=== PATIENT | male | born 1995 | race Caucasian/White ===

== ENCOUNTER 2017-06-02 00:23 | Inpatient (IN) | payer BC, OTHER ==
[~2017-06-02] VITALS: Ht 182.9 cm; Wt 71.7 kg
[2017-06-02] MEDS ORDERED: ACETAMINOPHEN 325 MG TABLET PO PRN (18:45)
[2017-06-02] MEDS ORDERED: diphenhydrAMINE 50 MG CAPSULE PO PRN (18:45)
[2017-06-02] MEDS ORDERED: ONDANSETRON ODT 4 MG TAB.RAPDIS SL PRN (18:45)
[2017-06-02] MEDS ORDERED: LORAZEPAM 2 MG/1 ML VIAL IM PRN (18:45)
[2017-06-02] MEDS ORDERED: METHOCARBAMOL 750 MG TABLET PO PRN (18:45)
[2017-06-02] MEDS ORDERED: LOPERAMIDE HCL 2 MG CAPSULE PO PRN ×2 (18:45)
[2017-06-02] MEDS ORDERED: MIRALAX 17 GM POWD.PACK PO PRN (18:45)
[2017-06-02] MEDS ORDERED: MAGNESIUM HYDROXIDE 30 ML LIQUID UDC PO PRN (18:45)
[2017-06-02] MEDS ORDERED: ONDANSETRON 4 MG/2 ML VIAL IM PRN (18:45)
[2017-06-02] MEDS ORDERED: BUPRENORPHINE HCL 2 MG TAB.SUBL SL PRN (18:45)
[2017-06-02] MEDS ORDERED: IBUPROFEN 600 MG TABLET PO PRN (18:45)
[2017-06-02] MEDS ORDERED: CLONIDINE HCL 0.1 MG TABLET PO PRN (18:45)
[2017-06-02] MEDS ORDERED: MAG HYDROX/AL HYDROX/SIMETH 30 ML LIQUID UDC PO PRN (18:45)
[2017-06-02] MEDS ORDERED: LORAZEPAM 1 MG TABLET PO PRN ×2 (18:45)
[2017-06-02] MEDS ORDERED: DICYCLOMINE HCL 20 MG TABLET PO PRN (18:45)
[2017-06-02 19:15] VITALS: BP 140/85
--- NOTE | 2017-06-02 19:15 | NUR ---
INTAKE ASSESSMENT NOTE BP: 140/85, HR:96, RR:18, SpO2:97%, T:98.1, Pt denies pain at this time Pt is in stable condition and is able to be admitted on the unit. Unit protocols regarding medications and vital signs every 4 hours were explained. Pt verbalized understanding. Will continue admission upon arrival on the unit.
--- NOTE | 2017-06-02 20:00 | NUR ---
ADMISSION NOTE COWS:7, CIWA:6 Pt arrived ambulatory from [facility] Intake to the third floor accompanied by a RN DERMATOLOGY at 1924. Pt is a 21 year old male admitted on 06/02/17 for Benzodiazepine, Opioid, and Methamphetamine dependency. Pt is full code with NKA. He reports a PMHx of anxiety. He denies any history of seizures or recent falls. He denies having a PCP. He did not bring any home medications but reports taking generic brand of Sudafed for his allergies. He reports this is his first time in detox and his longest sobriety was for 4 months in 2009. He describes his current use as: 1. Xanax 4mg PO daily for 6 months. Last dose was 1 mg PO on 06/01/17 2. Percocet, Lortab, Simla, Roxicodone (9-10 pills) intermittently depending on availability Last dose was 06/01/17. 3. Fentanyl 70 mcg patch intermittently 4. Morphine Sulfate liquid drops. 40 mL intermittently 5. Methamphetamine 1/8th gram (snort) daily for 6 months. Last dose 1/8th gram on 06/01/17 Pt describes his withdrawal symptoms as " body aches, chills, sweats, and anxiety" Upon assessment, pt is alert and oriented x4, anxious, restless and cooperative. Speech is clear and audible. Heart rate is regular. Pt denies chest pain or SOB. PERRLA, breathing is even and unlabored, lung sounds clear. Abdomen is soft and non-distended. Bowel sounds present, last BM 06/02/17. Pt reports that BM is regular. Pt's skin is warm, dry and intact. MD aware of pt's admission. Pt oriented to room and unit. Pt safe with bed locked in lowest position, side rails up x2 and call light within reach. Will monitor.
[2017-06-02] MEDS ORDERED: LORAZEPAM 1 MG TABLET ONE (20:03)
[2017-06-02 20:15] LABS: *AMPHETAMINE, URINE NEGATIVE (NEGATIVE); *BARBITURATE, URINE NEGATIVE (NEGATIVE); *CANNABINOID, URINE POSITIVE (NEGATIVE); *COCCAINE, URINE NEGATIVE (NEGATIVE); *OPIATE, URINE NEGATIVE (NEGATIVE); *PHENCYCLIDINE SCREEN,URINE NEGATIVE (NEGATIVE)
[2017-06-02 20:44] LABS: BASOPHILS # (AUTO) 0.1 K/uL (0.0-8.0); BASOPHILS % (AUTO) 0.5 % (0.0-2.0); EOSINOPHILS # (AUTO) 0.9 K/uL (0.0-0.7); HEMOGLOBIN 13.9 G/DL (14.0-18.0); LYMPHOCYTES # (AUTO) 3.3 K/UL (0.8-4.8); LYMPHOCYTES % (AUTO) 30.8 % (20.5-51.5); MEAN CORPUSCULAR HEMOGLOBIN 31.1 UUG (27.0-31.0); MEAN CORPUSCULAR HGB CONC 33 g/dL (32.0-37.0); MEAN CORPUSCULAR VOLUME 94.3 FL (82.0-92.0); MONOCYTES # (AUTO) 0.6 K/UL (0.1-1.30); MONOCYTES % (AUTO) 5.8 % (0.0-11.0); NEUTROPHILS # (AUTO) 5.8 K/UL (1.8-8.9); NEUTROPHILS % (AUTO) 54.9 % (38.5-71.5); PLATELET COUNT (AUTO) 218 K/UL (150-450); RED BLOOD CELL COUNT(AUTO) 4.45 MIL/UL (4.7-6.1); WHITE BLOOD COUNT (AUTO) 10.7 K/UL (4.0-11.2)
[2017-06-02] MEDS ORDERED: LORAZEPAM 1 MG TABLET PO ONE (21:00)
[2017-06-02 21:03] LABS: ALANINE AMINOTRANSFERASE 23 U/L (16-63); ALKALINE PHOSPHATASE 105 U/L (50-136); ASPARTATE AMINOTRANSFERASE < 5 U/L (15-37); BILIRUBIN,TOTAL 0.2 mg/dL (0.2-1.0); CARBON DIOXIDE 27 mmol/L (21-32); CHLORIDE 107 mmol/L (98-107); CREATININE 0.9 mg/dL (0.6-1.3); GLUCOSE 110 mg/dL (74-106); MAGNESIUM 1.8 mg/dL (1.8-2.4); POTASSIUM 3.3 mmol/L (3.5-5.1); TOTAL PROTEIN, SERUM 6.6 g/dL (6.4-8.2); UREA NITROGEN, BLOOD 11 mg/dL (7-18)
[2017-06-02 21:11] LABS: ETHANOL < 3 MG/DL (0-0)
[2017-06-02] MEDS ORDERED: POTASSIUM CHLORIDE 20 MEQ TAB.PRT.SR PO ONE (21:45)
[2017-06-02] MEDS ORDERED: POTASSIUM CHLORIDE 20 MEQ TAB.PRT.SR ONE (22:05)
[2017-06-02] MEDS ORDERED: NICOTINE POLACRILEX 4 MG GUM-PK OF TEN BC PRN (23:45)
[2017-06-02] MEDS ORDERED: NICOTINE 14 MG/24HR PATCH TD PRN (23:45)
[2017-06-03] VITALS: BP 117/76
--- NOTE | 2017-06-03 | NUR ---
COWS/CIWA DEFERRED Pt lying in bed with eyes closed noted to be asleep. Respirations 16, breathing is even and unlabored. Safety measures in place. Will monitor.
--- NOTE | 2017-06-03 00:19 | NUR ---
POTASSIUM Pt with decreased potassium of 3.3. Administered KDUR 40meQ as ordered.
[2017-06-03 04:00] VITALS: BP 110/70
--- NOTE | 2017-06-03 07:19 | NUR ---
END OF SHIFT Pt is a 21 year old male admitted on 06/02/17 for Benzodiazepine, Opioid, and Methamphetamine dependency. Pt is full code with NKA. He reports a PMHx of anxiety. He denies any history of seizures. He is scheduled to start a 5 day Ativan and 5 day Subutex taper today. He received a one time order of Ativan 2 mg, which was effective as evidenced by decrease in CIWA score from 6 to 4. He slept a total of 9hrs, Intake: 500mL, Void: x2, BM:0, COWS: 7, CIWA:4. Pt remains alert and oriented x4, breathing is even and unlabored. Safety measures in place. Will endorse to oncoming shift.
--- NOTE | 2017-06-03 07:20 | NUR ---
Start of Shift Pt is a 21 y/o male here for polysubstance dependence r/t opiates and Benzo r/t Xanax 4mg daily; 5 day Subutex and a5 day Ativan tapers ordered. Pt is a full code, regular diet, NKA, fall and seizure precautions ordered. PHx: anxiety and allergies. This is the first time doing detox. V/S stable and skin is intact. No new orders endorsed to me. pt is asleep in room Will cont. to monitor the pt. Last COWS 7 CIWA 4.
[2017-06-03 08:00] VITALS: BP 120/76
[2017-06-03] MEDS ORDERED: TUBERCULIN,PURIF.PROT.DERIV. 5 TU/0.1 ML TEST ID ONE (09:00)
[2017-06-03] MEDS: BUPRENORPHINE HCL 2 MG TAB.SUBL SL SCH ×4 (09:30→20:30)
[2017-06-03] MEDS: LORAZEPAM 1 MG TABLET PO SCH ×4 (09:30→20:30)
[2017-06-03] MEDS: GABAPENTIN 300 MG CAPSULE PO SCH ×2 (09:30→20:30)
[2017-06-03 12:00] VITALS: BP 149/91
--- NOTE | 2017-06-03 15:28 | NUR ---
therapist encouraged client to come to group today. Client agreed to attend group.
[2017-06-03 16:00] VITALS: BP 131/78
--- NOTE | 2017-06-03 19:15 | NUR ---
START OF SHIFT Received 21 year old male patient admitted on 06/02/17 for Benzodiazepine, Opioid and Methamphetamine dependency. Pt is full code with NKA. He reports a PMHx of anxiety and seasonal allergies. He started his 5 day Ativan and 5 day Subutex taper today and is tolerating well. He did not receive or request PRN medications. Pt is alert and oriented x4, breathing is even and unlabored. Safety measures in place. Will continue to monitor.
--- NOTE | 2017-06-03 19:33 | NUR ---
End of Shift Report to night nurse: Pt is a 21 y/o male here for polysubstance dependence r/t opiates and Benzo r/t Xanax 4mg daily; 5 day Subutex and a5 day Ativan tapers ordered. Pt is a full code, regular diet, NKA, fall and seizure precautions ordered. PHx: anxiety and allergies. This is the first time doing detox. V/S stable and skin is intact with PPD done on the Left FA. No PRN medications given last night. No new orders or labs during my shift. Last COWS 8 CIWA 6.
[2017-06-03 20:00] VITALS: BP 136/74
[2017-06-04] VITALS: BP 141/90
--- NOTE | 2017-06-04 | NUR ---
COWS/CIWA DEFERRED Pt lying in bed with eyes closed noted to be asleep. Respirations 16, breathing is even and unlabored. Safety measures in place. Will monitor.
[2017-06-04 04:00] VITALS: BP 130/88
--- NOTE | 2017-06-04 04:00 | NUR ---
COWS/CIWA DEFERRED COWS/CIWA deferred d/t pt lying in bed with eyes closed noted to be asleep. Respirations 16, breathing is even and unlabored. Safety measures in place. Will monitor.
--- NOTE | 2017-06-04 07:20 | NUR ---
Start of Shift Pt is a 21 y/o male here for polysubstance dependence r/t opiates and Benzo r/t Xanax 4mg daily; 5 day Subutex and a5 day Ativan tapers ordered. Pt is a full code, regular diet, NKA, fall and seizure precautions ordered. PHx: anxiety and allergies. This is the first time doing detox. V/S stable and skin is intact. No new orders or abnormal labs endorsed to me. Last COWS 5 CIWA 6. Pt is in room asleep. Colby cont. to monitor the pt.
--- NOTE | 2017-06-04 07:23 | NUR ---
END OF SHIFT Pt is a 21 year old male patient admitted on 06/02/17 for Benzodiazepine, Opioid and Methamphetamine dependency. Pt is full code with NKA. He reports a PMHx of anxiety and seasonal allergies. He continues on a 5 day Ativan and 5 day Subutex taper, currently on day 2/5 and is tolerating well. He did not receive or request PRN medications. He slept a total of 9hrs, Intake: 1150mL, Void: x2, BM:0, COWS:5, CIWA:6. Pt remains alert and oriented x4, breathing is even and unlabored. Safety measures in place. Endorsed to oncoming shift.
[2017-06-04 08:00] VITALS: BP 142/96
[2017-06-04] MEDS: GABAPENTIN 300 MG CAPSULE PO SCH (09:00)
[2017-06-04] MEDS: BUPRENORPHINE HCL 2 MG TAB.SUBL SL SCH ×3 (09:01→21:35)
[2017-06-04] MEDS: LORAZEPAM 1 MG TABLET PO SCH ×3 (09:01→21:34)
[2017-06-04 11:07] LABS: HEPATITIS B SURFACE AG Negative (Negative)
[2017-06-04 12:00] VITALS: BP 150/94
[2017-06-04] MEDS ORDERED: KETOROLAC TROMETHAMINE 30 MG INJ IM PRN (12:15)
--- NOTE | 2017-06-04 14:29 | NUR ---
Prompted client to attend group.
[2017-06-04 16:00] VITALS: BP 133/97
[2017-06-04] MEDS: BACLOFEN 10 MG TABLET PO SCH ×2 (17:15→21:34)
[2017-06-04] MEDS: DICYCLOMINE HCL 20 MG TABLET PO SCH ×2 (17:18→21:34)
--- NOTE | 2017-06-04 19:24 | NUR ---
End of Shift Report to night nurse: Pt is a 21 y/o male here for polysubstance dependence r/t opiates and Benzo r/t Xanax 4mg daily and Methamphetamine; 5 day Subutex and a5 day Ativan tapers ordered. Pt is a full code, regular diet, NKA, fall and seizure precautions ordered. HHx: anxiety and allergies. This is the first time doing detox. V/S stable and skin is intact. No PRN medications given during my shift. New orders for Bentyl, and baclofen ordered during my shift. Endorsed to the night nurse to monitor the pt's anxiety and BP and to offer him Clonidine since he needs encouragement to take it PRN. Last COWS 7 CIWA 5.
--- NOTE | 2017-06-04 19:30 | NUR ---
Start of Shift Note Received a 21 y/o male admitted 06/02/2017 for polysubstance dependence r/t opiates and Benzo. Px is on 5 day Subutex and 5 day Ativan tapers ordered. Px is on full code, regular diet, NKA, fall and seizure precautions ordered. PHx: anxiety and allergies. During the rounds, COWS 7, CIWA 6. Respirations are even and unlabored. Pupils are pinned. Tremors are observed. Anxiety is on the mild to moderate side. No complaints as of the moment. Side rails up, call lights on. We'll continue to monitor.
[2017-06-04 20:00] VITALS: BP 149/109
[2017-06-04] MEDS: CLONIDINE HCL 0.1 MG TABLET PO SCH (21:34)
[2017-06-05] VITALS: BP 128/83
--- NOTE | 2017-06-05 00:11 | NUR ---
PRN Toradol inj Px complained of left leg pain 03/29. Toradol inj 30 mg given IM on left deltoids as PRN med. We'll continue to monitor.
[2017-06-05 04:00] VITALS: BP 109/61
--- NOTE | 2017-06-05 04:00 | NUR ---
COWS and CIWA deferred COWS and CIWA deferred due to the px is sleeping, to be assess if the px is awake per doctor's order. We'll continue to monitor.
--- NOTE | 2017-06-05 07:25 | NUR ---
End of Shift Note 21 y/o male admitted 06/02/2017 for opiates and Benzos dependence. Px is on 5 day Subutex and 5 day Ativan taper. Px is on full code, regular diet, NKA, fall and seizure precautions ordered. PHx: anxiety and allergies. During the shift, Px complained of left leg pain 03/29 around 0000,COWS 7, CIWA 7, Toradol inj 30 mg given IM on left deltoids as PRN med. Oral intake of 1,800 ml, voided 3x, BM x1. Slept for 6 hrs. Respirations are even and unlabored. Side rails up x2, call lights within reach. Bed on lowest position. We'll continue to monitor.
--- NOTE | 2017-06-05 07:47 | NUR ---
Start of shift note; Received report from night nurse. Patient is a 21 year old male admitted on 06/02/17 for Benzodiazepine/Opiate dependence. Patient was placed on a 5 day Ativan and 5 day Subutex taper, no adverse reactions noted. Patient reported history of anxiety. Patient's last COWS is 7 and last CIWA is 7 at 2400. Patient slept for 6 hours. Patient is on fall and seizure precautions. Bed in lowest position, call light within reach. Will continue to monitor patient.
[2017-06-05 08:00] VITALS: BP 112/64
[2017-06-05] MEDS ORDERED: LORAZEPAM 1 MG TABLET PO SCH ×3 (09:00→21:00)
[2017-06-05] MEDS: CLONIDINE HCL 0.1 MG TABLET PO SCH ×3 (09:00→21:30)
[2017-06-05] MEDS ORDERED: BUPRENORPHINE HCL 2 MG TAB.SUBL SL SCH (09:00)
[2017-06-05] MEDS: DICYCLOMINE HCL 20 MG TABLET PO SCH ×3 (09:00→21:31)
[2017-06-05] MEDS: LORAZEPAM 1 MG TABLET PO SCH ×2 (09:00→12:37)
[2017-06-05] MEDS: BACLOFEN 10 MG TABLET PO SCH (09:00)
--- NOTE | 2017-06-05 09:20 | NUR ---
Nurse note; Patient is AOX4. Morning medications given. Patient attempted to separate Ativan pill and tried to hide it under the sheets. Confronted patient and educated patient regarding the unit protocols and policies. Patient became very defensive about the situation. Witnessed patient take medication. Inspected patient's hand and mouth thoroughly. Medications were taken properly. Will closely monitor patient. Charge nurse was notified. Will notify MD during MD rounds.
--- NOTE | 2017-06-05 10:16 | NUR ---
MD communication; MD on unit. MD was notified of patient's attempt to hide medication. Will closely monitor patient.
[2017-06-05 12:00] VITALS: BP 119/68
[2017-06-05] MEDS: BUPRENORPHINE HCL 2 MG TAB.SUBL SL SCH ×2 (14:46→21:31)
[2017-06-05] MEDS: BACLOFEN 20 MG TABLET PO SCH ×2 (14:46→21:31)
[2017-06-05 16:00] VITALS: BP 96/65
--- NOTE | 2017-06-05 18:08 | NUR ---
End of shift note; Patient is AOX4. Patient is a 21 year old male admitted on 06/02/17 for Benzodiazepine/Opiate dependence. Patient was placed on a 5 day Ativan and 5 day Subutex taper, no adverse reactions noted. Patient reported history of anxiety. Patient's last COWS is 4 and last CIWA is 4 at 1600. Monitored patient closely throughout the shift. Patient was educated regarding unit policies, patient verbalized understanding. Patient is on fall and seizure precautions. Bed in lowest position, call light within reach. Met all needs.
[2017-06-05 20:00] VITALS: BP 107/60
--- NOTE | 2017-06-05 20:00 | NUR ---
Start of Shift Note Received a 21 y/o male admitted 06/02/2017 for polysubstance dependence r/t opiates and Benzo. Px is on 5 day Subutex and 5 day Ativan tapers ordered. Px is on full code, regular diet, NKA, fall and seizure precautions ordered. PHx: anxiety and allergies. During the rounds, Reports increased anxiety and generalized body aches 5/10. Respirations are even and unlabored. Pupils are pinned. Tremors are observed. Side rails up, call lights on. We'll continue to monitor.
[2017-06-06] VITALS: BP 126/83
[2017-06-06 04:00] VITALS: BP 116/81
--- NOTE | 2017-06-06 07:17 | NUR ---
End of Shift Note 21 y/o male admitted 06/02/2017 for polysubstance dependence r/t opiates and Benzo. Px is on 5 day Subutex and 5 day Ativan taper. Full code, regular diet, NKA. Fall and seizure precautions. During the rounds, No complaints as of the moment. Respirations are even and unlabored. Pupils are pinned. Tremors are observed. Anxiety is on the mild to moderate side. Around 0100, px requested for Ativan to make him sleep, Benadryl 50 mg/tab offered but refused. Oral intake of 1,500 ml, voided x5, BM x1. Slept for 3 hrs. Last COWS 4, CIWA 5. Side rails up, call lights on, bed locked in low position. We'll continue to monitor.
[2017-06-06 08:00] VITALS: BP 113/63
--- NOTE | 2017-06-06 08:10 | NUR ---
START OF SHIFT: RECEIVED PT A/O X 4. HE PRESENTS FIDGETY WITH ANXIOUS MOOD. HE STATES HE DID NOT SLEEP WELL. HE REPORTS RESTLESSNESS,ANXIETY,SWEATS,CHILLS AND BODY ACHES. ATIVAN/SUBUTEX TAPER IN PROGRESS.STRICT MOUTH CHECKS DONE.CIWA 5 COWS 6. ENCOURAGED INCREASED FLUIDS TO ASSIST IN FACILITATING DETOX PROCESS. ENCOURAGED GROUP ATTENDANCE TO IMPROVE COPING SKILLS AND PREVENT RELAPSE. WILL CONTINUE TO MONITOR AND OFFER SAFE AND SUPPORTIVE ENVIRONMENT.
[2017-06-06] MEDS: CLONIDINE HCL 0.1 MG TABLET PO SCH ×2 (08:41→15:41)
[2017-06-06] MEDS: BACLOFEN 20 MG TABLET PO SCH ×3 (08:41→20:06)
[2017-06-06] MEDS: DICYCLOMINE HCL 20 MG TABLET PO SCH ×3 (08:41→20:05)
[2017-06-06] MEDS: LORAZEPAM 1 MG TABLET PO SCH ×3 (08:41→20:05)
[2017-06-06] MEDS: BUPRENORPHINE HCL 2 MG TAB.SUBL SL SCH ×3 (08:42→20:06)
[2017-06-06] MEDS ORDERED: LORAZEPAM 1 MG TABLET PO SCH (09:00)
--- NOTE | 2017-06-06 10:00 | NUR ---
Activity Group Note: Attempt made for group participation. Client refused. Will attempt when time permits.
[2017-06-06 12:00] VITALS: BP 128/80
--- NOTE | 2017-06-06 13:45 | NUR ---
Activity Group Note: Attempt made for group participation. Client refused. Will attempt again when time permits.
[2017-06-06] MEDS ORDERED: LORAZEPAM 1 MG TABLET PO ONE (15:00)
[2017-06-06 16:00] VITALS: BP 118/73
--- NOTE | 2017-06-06 19:00 | NUR ---
Start of Shift Patient Received. Patient is in his room, awake, alert and verbally responsive. Breathing even and non labored. Patient is a 21 year old male admitted on 06/04/17 for Opiate Dependence under the care of Dr. Mendez. Patient is continuing on a 5 day Subutex taper. Patient verbalizes no known allergies, wishes to be full code, following a regular diet, placed on fall precautions. Skin noted with multiple scabs throughout his body due to his substance use. Patient denies past medical hisotry. Per endorsement, patient continues on Doxycycline for Multiple scattered open wounds. No PRN medications administered. Last noted COWS 6. All needs attended to promptly. Will continue plan of care as ordered. Addendum: 06/06/17 at 2206 by VISHAL MENESES LVN ENTERED IN ERROR: WRONG PATIENT
--- NOTE | 2017-06-06 19:10 | NUR ---
Start of Shift Patient Received. Patient is in his room, awake, alert and verbally responsive. Patient is a 21 year old male admitted on 06/02/17 for Opioid and Benzo Dependence under the care of Dr. Mendez . Patient continues on a 5 day Ativan and 5 day Subutex taper. Patient verbalizes no known allergies, wishes to be full code, following a regular diet, placed on fall and seizure precautions. Skin noted intact. Past medical history of Anxiety. Per endorsement, Patient continues on Room Restriction for increased behavior episodes. Last noted CIWA 5 and COWS7. No PRN Medications administered. All needs attended to promptly. Will continue plan of care as ordered.
--- NOTE | 2017-06-06 19:23 | NUR ---
END OF SHIFT: PT CONTINUES ON ATIVAN/SUBUTEX TAPER. LAST COWS 7 CIWA 5. HE BECOMES EASILY AGITATED WITH THE CUSTOMER SUPPORT TECHNICIAN BUT HAS NOT BEEN AGITATED WITH NURSING STAFF ON THIS SHIFT. HE C/O RESTLESSNESS AND IS FIDGETY. HE IS COMPLIANT WITH MEDS. HE STATES DETOX MEDS ARE EFFECTIVE.STRICT MOUTH CHECK DONE AND WILL PASS IN REPORT. WILL PASS SHIFT REPORT TO ONCOMING NIGHT NURSE.
[2017-06-06 20:02] VITALS: BP 132/79
[2017-06-06] MEDS: CLONIDINE HCL 0.2 MG TABLET PO SCH (20:06)
[2017-06-07 00:13] VITALS: BP 103/56
[2017-06-07 04:00] VITALS: BP 106/65
--- NOTE | 2017-06-07 07:22 | NUR ---
End of Shift Patient is noted in bed sleeping. Breathing even and non labored. Patient is a 21 year old male admitted on 06/02/17 for Opioid and Benzo Dependence continues on a 5 day Ativan and 5 day Subutex taper. No known allergies, Full Code, Regular Diet, placed on fall and seizure precautions. Skin noted intact. Past medical history of Anxiety. Patient continues on Room Restriction for increased behavior episodes. No PRN medications administered. Last noted to be CIWA 8 and COWS 9. All needs attended to promptly. Will endorse to continue plan of care as ordered.
--- NOTE | 2017-06-07 07:50 | NUR ---
START OF SHIFT Rcvd endorsement from ongoing nurse, client is in bed, he is a/o x 4, he presents with depressed, irritable mood, blunt affect, stuffy nose, watery eyes, and clammy skin Client reports chills, body aches, abdominal cramps, and decreased appetite. Encouraged client to attend group therapy for skills to maintain sober. Encouraged client to increase PO fluid as tolerated to facilitate detox. Client is a 21 y/o male, admitted to [facility] for withdrawal from prescription opioids and alprazolam. Client is on 5 day Ativan/ 5 day Subutex taper (day 4), tolerating well. Last CIWA 8/ COWS 9 @ 1999. Client is on room restrictions per Dr. Ziegler due to behavioral issues, he was yelling at staff and slamming his door. He denies any hx of withdrawal-induced seizures, he is on seizure precautions. He reports of NKA, full code, Regular diet. Side rails x 2 up/padded. Call light within reach.
[2017-06-07 08:00] VITALS: BP 113/74
[2017-06-07] MEDS: BACLOFEN 20 MG TABLET PO SCH ×3 (08:58→20:47)
[2017-06-07] MEDS: BUPRENORPHINE HCL 2 MG TAB.SUBL SL SCH ×2 (08:58→20:48)
[2017-06-07] MEDS: LORAZEPAM 1 MG TABLET PO SCH ×2 (08:58→20:47)
[2017-06-07] MEDS: DICYCLOMINE HCL 20 MG TABLET PO SCH ×3 (08:59→20:48)
[2017-06-07] MEDS: CLONIDINE HCL 0.1 MG TABLET PO SCH ×2 (08:59→15:17)
[2017-06-07] MEDS ORDERED: LORAZEPAM 1 MG TABLET PO SCH (09:00)
[2017-06-07] MEDS ORDERED: BUPRENORPHINE HCL 2 MG TAB.SUBL SL SCH (09:00)
[2017-06-07 12:59] VITALS: BP 144/83
--- NOTE | 2017-06-07 14:13 | NUR ---
Therapist prompted client to attend group. Client agreed to attend group.
[2017-06-07 16:41] VITALS: BP 120/78
--- NOTE | 2017-06-07 19:30 | NUR ---
END OF SHIFT Client is a 21 y/o male, admitted to [facility] for withdrawal from prescription opioids and alprazolam. Client is on 5 day Ativan/ 5 day Subutex taper (day 4), tolerating well. Last CIWA 6/ 7 @ 1600. He denies any hx of withdrawal-induced seizures, he is on seizure precautions. He reports of NKA, full code, Regular diet. Side rails x 2 up/padded. Call light within reach.
[2017-06-07] MEDS ORDERED: NAPH30DR5 OP (19:54)
[2017-06-07] MEDS ORDERED: OXYM-46 NS (19:54)
[2017-06-07] MEDS ORDERED: NORMAL SALINE NASAL 45 ML BOTTLE NS PRN (20:00)
[2017-06-07] MEDS ORDERED: CLEAR EYES EACHEYE PRN (20:00)
[2017-06-07 20:43] VITALS: BP 124/61
[2017-06-07] MEDS: CLONIDINE HCL 0.2 MG TABLET PO SCH (20:48)
[2017-06-08 00:26] VITALS: BP_SYST 103; BP_SYST 114; BP_DIAS 59; BP_DIAS 70
[2017-06-08] MEDS: CLONIDINE HCL 0.1 MG TABLET PO SCH ×2 (09:00→14:59)
[2017-06-08] MEDS: DICYCLOMINE HCL 20 MG TABLET PO SCH ×3 (09:00→21:00)
[2017-06-08] MEDS ORDERED: LORAZEPAM 1 MG TABLET PO SCH (09:00)
[2017-06-08] MEDS: BACLOFEN 20 MG TABLET PO SCH ×3 (09:00→20:37)
[2017-06-08] MEDS ORDERED: BUPRENORPHINE HCL 2 MG TAB.SUBL SL SCH (09:00)
--- NOTE | 2017-06-08 10:05 | NUR ---
AM MEDS ADMINISTERED PER DOWNTIME PAPER WORK.
[2017-06-08] MEDS ORDERED: HYDROXYZINE PAMOATE 25 MG CAPSULE PO PRN (11:15)
[2017-06-08 12:00] VITALS: BP 103/60
[2017-06-08 16:00] VITALS: BP 141/81
--- NOTE | 2017-06-08 19:15 | NUR ---
Start of shift note Received report from day shift nurse. Pt is a 21 yo male, A+Ox4, presenting to [facility] for Benzo/Opiate/Methamphetamine dependence. Pt has NKA, is on Full code status, and on Regular diet. Pt is on Fall and Seizure precautions. Pt has HX of Anxiety and seasonal allergies. Pt has completed 5 day Ativan and 5 day Subutex tapers, tolerated well, and is due for discharge tomorrow. No s/s of distress noted at this time. Respirations even and unlabored. Will continue to monitor.
--- NOTE | 2017-06-08 19:16 | NUR ---
END OF SHIFT: PT COMPLETED TAPERS. LAST COWS 2 CIWA 3. HE STATES THE DETOX MEDS ARE EFFECTIVE. NO PRNS GIVEN. DISCHARGE PLANNING IN PROGRESS FOR 06/09. HE ATTENDED GROUPS AND COOPERATED WITH STAFF TODAY. WILL PASS SHIFT REPORT TO ONCOMING NIGHT NURSE.
[2017-06-08 20:11] VITALS: BP 137/98
[2017-06-08] MEDS: CLONIDINE HCL 0.2 MG TABLET PO SCH (20:37)
[2017-06-09 00:18] VITALS: BP 132/91
[2017-06-09] MEDS ORDERED: CLON0.1T14 PO (01:30)
[2017-06-09] MEDS ORDERED: NICO4GUM38 BC (01:30)
[2017-06-09] MEDS ORDERED: HYDR-3895 PO (01:30)
[2017-06-09] MEDS ORDERED: BACL20TA PO (01:30)
[2017-06-09] MEDS ORDERED: DICY20TA28 PO (01:30)
[2017-06-09] MEDS ORDERED: DIPH50CA37 PO (01:30)
[2017-06-09] MEDS ORDERED: IBUP-1955 PO (01:30)
[2017-06-09 04:18] VITALS: BP 130/87
--- NOTE | 2017-06-09 07:00 | NUR ---
End of shift note Pt is a 21 yo male, A+Ox4, presenting to [facility] for Benzo/Opiate/Methamphetamine dependence. Pt has NKA, is on Full code status, and on Regular diet. Pt is on Fall and Seizure precautions. Pt has HX of Anxiety and seasonal allergies. Pt has completed 5 day Ativan and 5 day Subutex tapers, tolerated well, and is due for discharge today. Pt slept for a total of 7 HRS. Last COWS: 1 and Last CIWA: 1 @0400. No s/s of distress noted at this time. Respirations even and unlabored. Will endorse to day shift nurse.
--- NOTE | 2017-06-09 07:30 | NUR ---
start of shift note: received pt from material handler 1st shift nurse, pt is in stable condition no s/s of pain or discomfort. pt is admitted for benzo/meth/opiate withdrawal/dependence. pts last cows 1 and ciwa 1. pt is set for discharge. will assist pt in discharging and will continue to monitor pt for any changes
[2017-06-09] MEDS: DICYCLOMINE HCL 20 MG TABLET PO SCH (09:22)
[2017-06-09] MEDS: BACLOFEN 20 MG TABLET PO SCH (09:22)
[2017-06-09 09:23] VITALS: BP 113/68
[2017-06-09] MEDS: CLONIDINE HCL 0.1 MG TABLET PO SCH (09:23)
--- NOTE | 2017-06-09 10:06 | NUR ---
discharge note: pt left the unit in stable condition no s/s of pain or discomfort. or any withdrawal symptoms. pt teaching was administered and pt verbalized understanding. pt's V/S WNL. [facility]
== END 2017-06-09 10:06 | DRG 895 ==
LOC: SRC 18:39
PROVIDERS: ADMIT Internal Medicine; ATTEND Internal Medicine
PROC: HZ2ZZZZ Detoxification Services for Substance Abuse Treatment (ICD-10-PCS; principal; 2017-06-02)
PROC: HZ41ZZZ Group Counseling for Substance Abuse Treatment, Behavioral (ICD-10-PCS; 2017-06-04)
DX: F11.23 Opioid dependence with withdrawal (principal); D53.9 Nutritional anemia, unspecified; E87.6 Hypokalemia; F10.10 Alcohol abuse, uncomplicated; F13.230 Sedative, hypnotic or anxiolytic dependence with withdrawal, uncomplicated; Y90.0 Blood alcohol level of less than 20 mg/100 ml; Z81.1 Family history of alcohol abuse and dependence; Z81.8 Family history of other mental and behavioral disorders; Z82.49 Family history of ischemic heart disease and other diseases of the circulatory system; F41.9 Anxiety disorder, unspecified; J30.2 Other seasonal allergic rhinitis; F17.210 Nicotine dependence, cigarettes, uncomplicated; F15.23 Other stimulant dependence with withdrawal; G25.81 Restless legs syndrome; F32.9 Major depressive disorder, single episode, unspecified
CPT/HCPCS: 36415; 70030-TC; 80307; 80349; 83735; 85025; 86580; 86592; 86705; 86803; 87340; 87806; A4663; G0480; J1885